=== PATIENT | male | born 1975 | race Hispanic/Latino ===

== ENCOUNTER 2018-03-08 18:35 | Emergency (ER) | payer MEDICAID ==
[2018-03-08 18:35] VITALS: BMI 37.1
--- NOTE | 2018-03-08 19:30 | C.PDOC ---
History Of Present Illness 42yo male, comes to ER for evaluation, complaining of a nose injury. Patient admits to alcohol use today. Time Seen by Provider: 03/08/18 19:20 Chief Complaint (Nursing): Substance Abuse History Per: Patient History/Exam Limitations: intoxication Onset/Duration Of Symptoms: Unknown Current Symptoms Are (Timing): Still Present Modifying Factor(s): Alcohol Past Medical History Reviewed: Historical Data, Nursing Documentation, Vital Signs Vital Signs: Last Vital Signs Temp 98.0 F 03/09/18 05:27 Pulse 90 03/09/18 05:27 Resp 14 03/09/18 05:27 BP 156/94 H 03/09/18 05:27 Pulse Ox 97 03/09/18 05:27 - Medical History PMH: Anxiety, Arthritis (as per CT results), Asthma (pt reports hx. Asthna, no meds), Fractures (L shoulder Fx), HTN, Pancreatitis Denies: COPD, HIV, Chronic Kidney Disease - [facility] DETOXIFICATION SERVICES FOR SUBSTANCE ABUSE TREATMENT (05/13/16) GAIT TRAINING/AMBULAT TREATMENT USING ASSIST EQUIPMENT (06/17/15) Family History: States: No Known Family Hx - Social History Hx Alcohol Use: Yes Hx Substance Use: No - Immunization History Hx Tetanus Toxoid Vaccination: (unk) Hx Influenza Vaccination: (unk) Hx Pneumococcal Vaccination: (unk) Review Of Systems Except As Marked, All Systems Reviewed And Found Negative. Constitutional: Positive for: Other (facial injury) ENT: Positive for: Nose Pain Physical Exam - Physical Exam Appears: Non-toxic, No Acute Distress Skin: Warm, Dry Head: Normacephalic Eye(s): bilateral: PERRL, EOMI, Other (ecchymosis noted to bilateral inferior orbits) Nose: Other (ecchymosis noted to dorsum of nose) Oral Mucosa: Other (alcohol on breath) Neck: Supple Chest: Symmetrical Cardiovascular: Rhythm Regular Respiratory: Normal Breath Sounds Gastrointestinal/Abdominal: Soft, No Tenderness Back: Normal Inspection Extremity: Normal ROM (FROM left arm), Other (ecchymosis noted to dorsum of left forearm) Neurological/Psych: Oriented x3, Normal Motor, Normal Sensation Gait: Unsteady ED Course And Treatment - Laboratory Results Result Diagrams: 03/08/18 20:03 03/08/18 20:03 O2 Sat by Pulse Oximetry: 97 (RA) Pulse Ox Interpretation: Normal - CT Scan/US CT Head Other Rad Studies (CT/US): Read By Radiologist, Radiology Report Reviewed CT/US Interpretation: FINDINGS: Brain: The brain with normal gordon-white matter differentiation, without acute intracranial hemorrhage,. edema or mass effect. Midline shift: No midline shift is present. Ventricles: Unremarkable. No ventriculomegaly. Bones/joints: No calvarial fractures are visualized. Soft tissues: Unremarkable. Sinuses: Unremarkable as visualized. No acute sinusitis. Mastoid air cells: Unremarkable as visualized. No mastoid effusion. Orbits: The orbits are normal. There is no evidence of retrobulbar hemorrhage. IMPRESSION: No significant injury noted to the patient's head. No acute intracranial findings are seen. CT Orbits Other Rad Studies (CT/US): Read By Radiologist, Radiology Report Reviewed CT/US Interpretation: FINDINGS: Bones/joints: No acute fracture. Degenerative changes in cervical spine. Orbits: No acute abnormality as visualized. Sinuses : Mild paranasal sinus mucosal thickening. No air-fluid levels. IMPRESSION: Negative for acute fracture. Medical Decision Making Medical Decision Making: Plan: -- CT Head -- CT Orbits -- Labs -- Haldol 5mg IM -- Toradol 60mg IM -- Ativan 2mg IM Disposition Counseled Patient/Family Regarding: Diagnosis - Disposition Referrals: [facility] [Outside] Disposition: HOME/ ROUTINE Disposition Time: 05:55 Condition: STABLE Instructions: Alcohol Abuse and Alcoholism (DC) Forms: [facility] (Hebrew) - POA Present On Arrival: None - Clinical Impression Clinical Impression: Alcohol intoxication - Scribe Statement The provider has reviewed the documentation as recorded by the Richard Clark Provider Attestation: All medical record entries made by the Richard were at my direction and personally dictated by me. I have reviewed the chart and agree that the record accurately reflects my personal performance of the history, physical exam, medical decision making, and the department course for this patient. I have also personally directed, reviewed, and agree with the discharge instructions and disposition.
[2018-03-08 20:06] LABS: BASO # 0.1 K/uL (0.0-0.2); BASO % 0.7 % (0.0-2.0); EOS # 0.1 K/uL (0.0-0.7); HEMOGLOBIN 15.6 g/dL (12.0-18.0); LYMPH # 1.9 K/uL (1.0-4.3); LYMPH % 23.3 % (20.0-40.0); MEAN CELL VOLUME 96.2 fL (80.0-94.0); MEAN CORPUSCULAR HEMOGLOBIN 34.2 pg (27.0-31.0); MEAN CORPUSCULAR HGB CONC 35.6 g/dL (33.0-37.0); MEAN PLATELET VOLUME 8.2 fL (7.2-11.7); MONO # 0.8 K/uL (0.0-0.8); MONO % 9.3 % (0.0-10.0); NEUT # 5.4 K/uL (1.8-7.0); NEUT % 65.7 % (50.0-75.0); NRBC % 0.1 % (0.0-2.0); RBC 4.55 Mil/uL (4.40-5.90); RED CELL DISTRIBUTION WIDTH 14.2 % (11.5-14.5); WHITE BLOOD COUNT 8.2 K/uL (4.8-10.8)
[2018-03-08 20:16] LABS: INR 1.2
[2018-03-08 20:21] LABS: ALB/GLOB RATIO 1.4 (1.0-2.1); ALBUMIN 5.1 g/dL (3.5-5.0); ALT/SGPT 239 U/L (21-72); AST/SGOT 276 U/L (17-59); BLOOD UREA NITROGEN 6 mg/dL (9-20); CALCIUM 9.3 mg/dl (8.6-10.4); GFR AFRICAN-AMERICAN > 60; GFR NON-AFRICAN AMERICAN > 60
[2018-03-08 23:27] LABS: URINE BACTERIA RARE (<OCC); URINE BILIRUBIN NEGATIVE (NEGATIVE); URINE BLOOD TRACE (NEGATIVE); URINE CLARITY Clear (Clear); URINE COLOR Yellow (YELLOW); URINE GLUCOSE (UA) NORMAL (Normal); URINE HYALINE CAST 0-2 /lpf (0-2); URINE LEUKOCYTE ESTERASE NEG Leu/uL (Negative); URINE PROTEIN 1+ mg/dL (NEGATIVE); URINE UROBILINOGEN NORMAL mg/dL (0.2-1.0)
[2018-03-08 23:35] LABS: BARBITURATES, UR NEGATIVE (NEGATIVE); BENZODIAZEPINES, UR NEGATIVE (NEGATIVE); OPIATES, UR NEGATIVE (NEGATIVE); PHENCYCLIDINE, UR NEGATIVE (NEGATIVE)
[2018-03-09 01:35] VITALS: RESP 14
[2018-03-09 05:27] VITALS: BP 156/94; PULSE 90; TEMP 98; O2SAT 97
--- NOTE | 2018-03-09 09:11 | CT ---
Date of service: 03/08/2018 PROCEDURE: CT MAXILLOFACIAL BONES WITHOUT CONTRAST HISTORY: injury COMPARISON: None TECHNIQUE: Contiguous axial CT images of the maxillofacial bones were obtained. Coronal and sagittal reformats were generated. Radiation dose: Total exam DLP = 760.02 mGy-cm. This CT exam was performed using one or more of the following dose reduction techniques: Automated exposure control, adjustment of the mA and/or kV according to patient size, and/or use of iterative reconstruction technique. FINDINGS: NASAL BONES: Unremarkable. ORBITS: Unremarkable. PARANASAL SINUSES/ MASTOIDS: Trace chronic left maxillary sinusitis. MAXILLA: Unremarkable. MANDIBLE/ TEMPOROMANDIBULAR JOINTS: Orbital floor and lamina papyracea are intact bilaterally. The globes are rounded and symmetric. There is no intraorbital hemorrhage or emphysema. SKULL BASE: Unremarkable. TEMPORAL BONES: Middle ears and mastoid grossly unremarkable. OTHER FINDINGS: None. IMPRESSION: No evidence facial fracture. The preliminary findings for this examination were reported by [employer] at 9:09 p.m. on 03/08/2018. There is concurrence of this report with the preliminary findings.
--- NOTE | 2018-03-09 09:40 | CT ---
Date of service: 03/08/2018 PROCEDURE: CT HEAD WITHOUT CONTRAST. HISTORY: Headache COMPARISON: None available. TECHNIQUE: Axial computed tomography images were obtained through the head/brain without intravenous contrast. Radiation dose: Total exam DLP = 857.23 mGy-cm. This CT exam was performed using one or more of the following dose reduction techniques: Automated exposure control, adjustment of the mA and/or kV according to patient size, and/or use of iterative reconstruction technique. FINDINGS: HEMORRHAGE: No intracranial hemorrhage. BRAIN: No mass effect or edema. No atrophy or chronic microvascular ischemic changes. VENTRICLES: Unremarkable. No hydrocephalus. CALVARIUM: Unremarkable. PARANASAL SINUSES: Unremarkable as visualized. No significant inflammatory changes. MASTOID AIR CELLS: Unremarkable as visualized. No inflammatory changes. OTHER FINDINGS: None. IMPRESSION: Normal CT of the Head. No intracranial mass, hemorrhage or evidence of acute infarct. The preliminary findings for this examination were reported by [employer] at 8:52 p.m. on 03/08/2018. There is concurrence of this report with the preliminary findings.
== END 2018-03-09 06:35 | disposition home or self-care (01) ==
LOC: C.ER 18:35
DX: F10.129 Alcohol abuse with intoxication, unspecified (principal); Y90.8 Blood alcohol level of 240 mg/100 ml or more
CPT/HCPCS: 70450; 70480; 80053; 80320; 80324; 80345; 80346; 80349; 80353; 80358; 80361; 81001; 82948; 83992; 85025; 85610; 85730; 96372; 99285; J1630; J1885; J2060